=== PATIENT | female | born 1940 | race Caucasian/White ===

== ENCOUNTER 2017-11-19 10:40 | Outpatient (CLI) | payer MEDICARE, BC | END 2017-11-19 10:41 | disposition home or self-care (01) | LOC: BICMAMMO 10:40 | PROVIDERS: ATTEND Internal Medicine | DX: Z12.31 Encounter for screening mammogram for malignant neoplasm of breast (principal) | CPT/HCPCS: 77063; 77067 ==

== ENCOUNTER 2017-12-23 09:02 | Emergency (ER) | payer MEDICARE, BC ==
--- NOTE | 2017-12-23 10:52 | RAD ---
CHEST 2 VIEWS: Date: 12/23/17 HISTORY: Cough and wheezing. COMPARISON: Radiograph dated 04/07/16. FINDINGS: Some scarring left lung base. Remainder of lungs are clear. No pneumothorax or effusion. Cardiac silh ouette and mediastinal contours are similar. Moderate vascular plaque transverse aorta. IMPRESSION: Chronic changes. No acute intrathoracic abnormality. POS: [facility]
== END 2017-12-23 10:25 | disposition home or self-care (01) ==
LOC: SCSER 09:02
DX: R06.2 Wheezing (principal); R05 Cough; R09.81 Nasal congestion; E11.9 Type 2 diabetes mellitus without complications; E78.5 Hyperlipidemia, unspecified; Z79.899 Other long term (current) drug therapy
CPT/HCPCS: 71046; 94640; J7620

== ENCOUNTER 2018-03-12 13:08 | Outpatient (CLI) | payer MEDICARE, BC ==
--- NOTE | 2018-03-12 15:12 | RAD ---
PA AND LATERAL CHEST: History: Dyspnea. Comparison: 12-23-17 History: Cough and congestion. FINDINGS: Heart size is within normal limits. There are atherosclerotic changes of the aorta. The lungs are [place] ar of infiltrates. There are arthritic changes of the spine. The bones are demineralized. IMPRESSION: No active intrathoracic disease. Stable exam. POS: [facility]
== END 2018-03-12 13:09 | disposition home or self-care (01) ==
LOC: RAD 13:08
PROVIDERS: ATTEND Internal Medicine Critical Care Medicine
DX: R06.00 Dyspnea, unspecified (principal)
CPT/HCPCS: 71046

== ENCOUNTER 2018-04-14 10:34 | Emergency (ER) | payer MEDICARE, BC ==
[2018-04-14] MEDS ORDERED: Sodium Chloride For Inhalation 0.9% 3 ML NEB ONE (11:12)
[2018-04-14] MEDS ORDERED: predniSONE 20 MG TAB ONE (12:09)
--- NOTE | 2018-04-14 12:13 | RAD ---
CHEST 2 VIEWS: Date: 04/14/18 HISTORY: Cough. COMPARISON: 03/12/18. FINDINGS: Cardiac silhouette has normal appearance. Pulmonary vasculature upper limits of normal. Mediastinum i s midline. No confluent air space consolidation, pneumothorax, or pleural fluid. Calcification over t he aortic arch. Degenerative changes of the thoracic spine on the lateral view. IMPRESSION: 1. Atherosclerosis. 2. No active cardiopulmonary abnormalities are demonstrated. POS: [facility]
== END 2018-04-14 12:17 | disposition home or self-care (01) ==
LOC: SCSER 10:34
DX: J44.9 Chronic obstructive pulmonary disease, unspecified (principal); E78.5 Hyperlipidemia, unspecified; Z79.899 Other long term (current) drug therapy
CPT/HCPCS: 71046; 94640; J7620

== ENCOUNTER 2019-01-24 13:09 | Outpatient (CLI) | payer MEDICARE, BC ==
--- NOTE | 2019-01-24 14:01 | MMO ---
Bilateral MAMMO Bilat Screen [facility]. CLINICAL HISTORY: Patient is 78 years old and is seen for screening. The patient has no family history of breast cancer. The patient has a history of gi cancer 2001. VIEWS: The views performed were: bilateral craniocaudal with tomosynthesis and bilateral mediolateral oblique with tomosynthesis. FILMS COMPARED: The present examination has been compared to prior imaging studies performed at [facility] on 08/13/2012, 09/14/2014, 11/15/2016 and 11/19/2017. This study has been interpreted with the assistance of computer-aided detection. MAMMOGRAM FINDINGS: The breasts are heterogeneously dense, which could obscure a lesion on mammography. There are stable benign appearing calcifications seen in both breasts. There are also vascular calcifications. There are no suspicious masses, suspicious calcifications, or new areas of architectural distortion. IMPRESSION: THERE IS NO MAMMOGRAPHIC EVIDENCE OF MALIGNANCY. A ROUTINE FOLLOW-UP MAMMOGRAM IN 1 YEAR IS RECOMMENDED. THE RESULTS OF THIS EXAM WERE SENT TO THE PATIENT. ACR BI-RADS Category 2 - Benign finding MAMMOGRAPHY NOTE: 1. A negative mammogram report should not delay a biopsy if a dominant of clinically suspicious mass is present. 2. Approximately 10% to 15% of breast cancers are not detected by mammography. 3. Adenosis and dense breasts may obscure an underlying neoplasm. Reported by: GELA LIMON MD Electonically Signed: [id number]
== END 2019-01-24 13:10 | disposition home or self-care (01) ==
LOC: BICMAMMO 13:09
PROVIDERS: ATTEND Internal Medicine
DX: Z12.31 Encounter for screening mammogram for malignant neoplasm of breast (principal); Z85.00 Personal history of malignant neoplasm of unspecified digestive organ
CPT/HCPCS: 77063; 77067

== ENCOUNTER 2019-07-18 07:27 | Outpatient (CLI) | payer MEDICARE, BC ==
[2019-07-18] MEDS ORDERED: ADENOSINE 60 MG/20 ML VIAL ONE (09:54)
--- NOTE | 2019-07-18 10:47 | NM ---
Radionucleotide stress and rest myocardial perfusion scan with CT attenuation correction and SPECT im aging Left ventricular wall motion evaluation and ejection fraction HISTORY: Chest pain. Diabetes. FINDINGS: Adenosine protocol. Homogeneous uptake of radiotracer throughout the left ventricular myoca rdium. No focal perfusion defect or reversibility. QGS analysis of gated SPECT images shows no focal wall motion abnormalities. Ejection fraction calcul ated at greater than 86%. IMPRESSION : No evidence of ischemia. Normal ejection fraction.
== END 2019-07-18 07:28 | disposition home or self-care (01) ==
LOC: NM 07:27
PROVIDERS: ATTEND Internal Medicine
DX: R07.9 Chest pain, unspecified (principal)
CPT/HCPCS: 78452; 93017; A9500; J0153

== ENCOUNTER 2021-10-08 08:07 | Emergency (ER) | payer MEDICARE, BC ==
[2021-10-08] MEDS ORDERED: Morphine 2 MG/ML VIAL ONE (10:45)
== END 2021-10-08 10:50 | disposition home or self-care (01) ==
LOC: ERS 08:07
DX: S42.212A Unspecified displaced fracture of surgical neck of left humerus, initial encounter for closed fracture (principal); J93.83 Other pneumothorax; E78.00 Pure hypercholesterolemia, unspecified; Z79.84 Long term (current) use of oral hypoglycemic drugs; Z79.899 Other long term (current) drug therapy; W18.30XA Fall on same level, unspecified, initial encounter
CPT/HCPCS: 70450; 71045; 72170; 73030; 73060; 96374; 99284; J2270; 93005

== ENCOUNTER 2022-08-24 13:28 | Emergency (ER) | payer MEDICARE, BC ==
[~2022-08-24 13:28] MED LIST: Iopamidol-370 76% 500 ML MDV (1 ML CHARGE) ONE
[2022-08-24] MEDS ORDERED: Morphine 4 MG/ML VIAL ONE (13:56)
[2022-08-24] MEDS ORDERED: Aspirin Chewable 81 MG TAB ONE (13:57)
[2022-08-24] MEDS ORDERED: Ondansetron PF 4 MG/2 ML Vial ONE (13:57)
[2022-08-24 14:05] LABS: #Eosinphils 0.1 thou/uL (0.0-0.7); #Monocytes 0.6 thou/uL (0.11-0.59); #Neutrophils 10.3 thou/uL (1.40-6.50); %Basophils 0.3 % (0.0-1.0); %Eosinophils 0.9 % (0.0-10.0); %Lymphocytes 10.3 % (21.0-51.0); %Monocytes 4.8 % (0.0-10.0); %Neutrophils 83.1 % (42.0-75.0); Hemoglobin 11.1 g/dL (12.0-16.0); Mean Corpuscular HGB CONC 30.2 g/dL (32.0-36.0); Mean Corpuscular Hemoglobin 24.3 pg (27.0-31.0); Mean Corpuscular Volume 80.5 fl (78.0-98.0); Mean Platelet Volume 10.8 fL (7.4-10.4); Platelet Count 310 10x3/uL (130-400); RBC Distribution Width 15.6 % (11.5-14.5); Red Blood Cell (RBC) Count 4.57 mill/uL (4.20-5.40); White Blood Cell (WBC) Count 12.4 10x3/uL (4.8-10.8)
[2022-08-24 14:29] LABS: ALT (SGPT) 15 U/L (8-55); AST (SGOT) 16 U/L (5-34); Albumin 4.3 g/dL (3.4-4.8); Alkaline Phosphatase 60 U/L (40-110); Anion Gap 15 mmol/L (10-20); BUN (Urea Nitrogen) 10 mg/dL (9.8-20.1); Bilirubin, Total 0.3 mg/dL (0.2-1.2); Calc. Creatinine Clearance 0 mL/min (70-130); Calcium 9.6 mg/dL (7.8-10.44); Carbon Dioxide 25 mmol/L (23-31); Chloride 106 mmol/L (98-107); Estimated GFR 85; Globulin 2.9 g/dL (2.4-3.5); Glucose 121 mg/dL (83-110); Potassium 3.7 mmol/L (3.5-5.1); Protein, Total 7.2 g/dL (5.8-8.1); Sodium 142 mmol/L (136-145)
[2022-08-24 15:02] LABS: Prothrombin Time 13.1 sec (12.0-14.7)
[2022-08-24 15:03] LABS: PTT 23.6 sec (22.9-36.1)
[2022-08-24] MEDS ORDERED: LevoFLOXacin 750 mg/D5W 150 ml Premix Bag ONE (16:10)
== END 2022-08-24 18:02 | disposition home or self-care (01) ==
LOC: ERS 13:28
DX: J18.9 Pneumonia, unspecified organism (principal); D72.829 Elevated white blood cell count, unspecified; E11.9 Type 2 diabetes mellitus without complications; E78.00 Pure hypercholesterolemia, unspecified; Z79.84 Long term (current) use of oral hypoglycemic drugs
CPT/HCPCS: 36415; 71045; 71275; 74174; 80053; 83690; 84484; 85025; 85610; 85730; 93005; 96374; 96375; J1956; J2270; J2405; Q9967

== ENCOUNTER 2022-09-22 12:53 | Outpatient (CLI) | payer MEDICARE, BC | END 2022-09-22 12:54 | disposition home or self-care (01) | LOC: BICMAMMO 12:53 | PROVIDERS: ATTEND Internal Medicine | DX: Z12.31 Encounter for screening mammogram for malignant neoplasm of breast (principal) | CPT/HCPCS: 77063; 77067 ==

== ENCOUNTER 2022-10-06 07:22 | Outpatient (CLI) | payer MEDICARE, BC | END 2022-10-06 07:23 | disposition home or self-care (01) | LOC: NM 07:22 | PROVIDERS: ATTEND Internal Medicine Gastroenterology | DX: R14.2 Eructation (principal); K31.89 Other diseases of stomach and duodenum; Z85.09 Personal history of malignant neoplasm of other digestive organs | CPT/HCPCS: 78264; A9541 ==

== ENCOUNTER 2023-07-03 07:54 | Outpatient (CLI) | payer MEDICARE, BC | END 2023-07-03 07:55 | disposition home or self-care (01) | LOC: BICMRI 07:54 | PROVIDERS: ATTEND Physical Medicine & Rehabilitation | DX: M54.50 Low back pain, unspecified (principal); M47.816 Spondylosis without myelopathy or radiculopathy, lumbar region; M48.061 Spinal stenosis, lumbar region without neurogenic claudication | CPT/HCPCS: 72148 ==